=== PATIENT | male | born 1945 | race Caucasian/White ===

== ENCOUNTER 2019-09-26 07:50 | Inpatient (IN) | payer OTHER ==
[~2019-09-26] VITALS: Ht 188 cm; Wt 59.0 kg
[2019-09-26 07:50] VITALS: BP_SYST 126
--- NOTE | 2019-09-26 07:50 | NUR ---
Placed in room 1. Placed on campus monitor, blood pressure machine and pulse oximeter. To gown for exam. Side rails up. Report given to DONIS Sen.
--- NOTE | 2019-09-26 07:54 | NUR ---
Patient brought in by ambulance c/o hypotension, generalized weakness, and frequent falls that started a weak ago. Skin tears and wounds on bilateral lower arms noted. Denied any chest pain or shortness of breath. Patient is alert and oriented x2, respirations even and unlabored, speaking in full sentences and able to sit up without help. VSS, pain level 0/10. Informed of the wait time. Instructed to notify ED staff for any changes in condition or worsening of symptoms. Patient verbalized understanding.
--- NOTE | 2019-09-26 08:18 | NUR ---
ER Dr. Inman at bedside examining patient.
--- NOTE | 2019-09-26 08:20 | NUR ---
Urine specimen collected.
[2019-09-26] MEDS ORDERED: NACL 0.9% 1,000 ML IV ONE ×2 (08:22→10:30)
--- NOTE | 2019-09-26 08:25 | NUR ---
Accucheck done, registered HIGH. notified.
--- NOTE | 2019-09-26 08:30 | NUR ---
X-ray done at bedside as ordered by Dr. Inman. Patient tolerated the procedure well.
--- NOTE | 2019-09-26 08:46 | NUR ---
cable television technician at bedside collecting blood specimen. Patient tolerated the procedure well.
[2019-09-26] MEDS ORDERED: INSULIN REGULAR, HUMAN 10 UNITS/0.1 ML INJ IVP ONE (09:00)
--- NOTE | 2019-09-26 09:00 | NUR ---
Administered Insulin 10units IVP as ordered by Dr. Inman. Patient tolerated the medication. See eMAR for details.
[2019-09-26 09:11] LABS: BILIRUBIN,URINE NEGATIVE (NEGATIVE); BLOOD, URINE 2+ (NEGATIVE); CLARITY/URINE CLEAR (CLEAR); COLOR,URINE YELLOW (YELLOW); GLUCOSE,URINE 3+ (NEGATIVE); KETONES,URINE TRACE (NEGATIVE); LEUKOCYTE ESTERASE ,URINE NEGATIVE (NEGATIVE); NITRITE, URINE NEGATIVE (NEGATIVE); PROTEIN URINE NEGATIVE (NEGATIVE); UROBILINOGEN,URINE 0.2 (0.2-1.0)
[2019-09-26 09:20] LABS: BASOPHILS # (AUTO) 0.1 K/uL (0.0-0.2); BASOPHILS % (AUTO) 1.3 % (0.0-2.0); EOSINOPHILS % (AUTO) 0.2 % (0.0-4.0); HEMATOCRIT 50.3 % (36-54); HEMOGLOBIN 16.1 g/dL (14.0-18.0); LYMPHOCYTES # (AUTO) 1.2 K/uL (1.0-5.5); LYMPHOCYTES % (AUTO) 21.3 % (20.5-51.5); MEAN CORPUSCULAR HEMOGLOBIN 26 pg (27-31); MEAN CORPUSCULAR HGB CONC 32 % (32-36); MEAN CORPUSCULAR VOLUME 81 fL (79.0-98.0); MONOCYTES # (AUTO) 0.8 K/uL (0.0-1.0); MONOCYTES % (AUTO) 13.5 % (1.7-9.3); NEUTROPHILS # (AUTO) 3.6 K/uL (1.8-7.7); NEUTROPHILS % (AUTO) 63.7 % (40.0-70.0); PLATELET COUNT (AUTO) 223 K/uL (130-430); RED BLOOD CELL COUNT(AUTO) 6.23 MIL/uL (4.2-6.2); RED CELL DISTRIBUTION WIDTH 15.9 % (9.0-15.0); WHITE BLOOD COUNT (AUTO) 5.6 K/uL (4.8-10.8)
--- NOTE | 2019-09-26 09:30 | NUR ---
Daughter at bedside.
[2019-09-26 09:31] LABS: BACTERIA,URINE FEW /HPF (None Seen); MUCUS,URINE 1+ /LPF (None Seen); WBC,URINE 0-3 /HPF (0-3)
[2019-09-26 09:47] LABS: ANION GAP 18 (5-15); CALCIUM 10.2 mg/dL (8.4-11.0); CHLORIDE 94 mmol/L (98-107); CREATININE 2.12 mg/dL (0.55-1.30); POTASSIUM 4.8 mmol/L (3.5-5.1); SODIUM SERUM 135 mmol/L (136-145); UREA NITROGEN, BLOOD 52 mg/dL (8-21)
[2019-09-26 09:58] LABS: ALANINE AMINOTRANSFERASE 24 U/L (12-78); ALBUMIN 3.6 g/dL (3.4-4.8); ASPARTATE AMINOTRANSFERASE 23 U/L (10-37); LIPASE 116 U/L (73-393); TOTAL BILIRUBIN 0.8 mg/dL (0.0-1.0)
--- NOTE | 2019-09-26 10:32 | NUR ---
[facility] called for admitting doctor, spoke to jesus.
[2019-09-26] MEDS ORDERED: LIP20 PO (10:47)
[2019-09-26] MEDS ORDERED: BENA10TA11 PO (10:47)
[2019-09-26] MEDS ORDERED: ASPI-1077 PO (10:47)
[2019-09-26] MEDS ORDERED: TRAZ300T2 PO (10:47)
[2019-09-26] MEDS ORDERED: CELE200C PO (10:47)
[2019-09-26] MEDS ORDERED: AMLO5TAB4 PO (10:47)
--- NOTE | 2019-09-26 11:16 | NUR ---
vasc tech at bedside collecting blood specimen. Patient tolerated the procedure well.
--- NOTE | 2019-09-26 11:19 | NUR ---
dr gonzales speaking to dr garcia per admission
--- NOTE | 2019-09-26 11:21 | NUR ---
Received admitting orders from Dr. Washington.
--- NOTE | 2019-09-26 11:30 | NUR ---
Accucheck done at bedside: 521. Notified
--- NOTE | 2019-09-26 12:00 | NUR ---
Admission Note Received patient from ER with diagnosis of renal failure. Initial Plan of Care discussed-patient verbalized understanding. Family at bedside. Oriented to room, call light, pain management and safety.
--- NOTE | 2019-09-26 12:15 | NUR ---
Patient will be admitted to care of Dr. Washington. Admitted to Telemetry unit. Will go to room 120B. Belongings list completed. Complete and up to date summary report printed. SBAR report given to Maria C at bedside with opportunity for questions.
--- NOTE | 2019-09-26 12:20 | NUR ---
Initial Notes: Received patient in the room,bed side report given by Er nurse Francy. Vital signs taken,afebrile. Initial assessment done. With bilateral arm skin tear from a fall at home.Family at the bedside,giving some medical history. Call light with in reach. Bed locked at lowest position. Bed alarm on. Put on telemetry.No acute distress.
[2019-09-26 12:48] VITALS: BP_SYST 153
[2019-09-26] MEDS: NACL 0.9% 1,000 ML IV SCH ×2 (13:26→23:40)
--- NOTE | 2019-09-26 15:00 | NUR ---
Photos: Photos taken on both arms.For wound care consult.
[2019-09-26 16:00] VITALS: BP_SYST 134
--- NOTE | 2019-09-26 17:41 | NUR ---
BLOOD SUGAR: BLOOD SLSCT=597AT/DL,MD NOTIFIED,WAITING FOR ORDERS.
[2019-09-26] MEDS ORDERED: DEXTROSE 50% JECT 50 ML DISP.SYRIN IVP PRN (17:45)
[2019-09-26] MEDS: ACETAMINOPHEN 325 MG TABLET PO PRN (18:01)
[2019-09-26] MEDS: INSULIN REGULAR, HUMAN 100 UNITS/ML, 10 ML VIAL (humuLIN R) SUBCUT PRN ×2 (18:03→23:38)
--- NOTE | 2019-09-26 18:06 | NUR ---
MD DARIO LANDRY CALLED AT SPOKE WITH LASHONDA.
--- NOTE | 2019-09-26 18:10 | NUR ---
ADDITIONAL ORDER: SPOKE WITH DR FOUNTAIN FOR XR=791HO/DL,HUMULIN R 12 UNITS SC GIVEN PER SLIDING SCALE AND ADDITIONAL HUMULIN R 4 UNITS SC GIVEN ORDERED.REPEAT BLOOD SUGAR IN 2 HOURS.
[2019-09-26] MEDS ORDERED: INSULIN REGULAR, HUMAN 100 UNITS/ML, 10 ML VIAL SUBCUT ONE ×2 (18:15→21:00)
[2019-09-26] MEDS: cefTRIAXone 1 GM IVPB PREMIX 50 ML IV SCH (18:20)
--- NOTE | 2019-09-26 18:20 | NUR ---
WOUND CARE: CLEANSE NS BILATERAL ARM,PAT DRY,VASELINE GAUZE APPLIED AND COVERED WITH FOAM DRESSING. FOR WOUND CARE CONSULT ORDERED.
--- NOTE | 2019-09-26 18:54 | NUR ---
END OF SHIFT: DAUGHTER AT THE BEDSIDE. TYLENOL PO FOR RIGHT SHOULDER PAIN GIVEN PER PATIENT'S REQUEST. CALL LIGHT WITHIN REACH. BED LOCKED AT LOWEST POSITION. BED ALARM ON. SAFETY MEASURES RENDERED. NO ACUTE DISTRESS.
--- NOTE | 2019-09-26 19:35 | NUR ---
ROUNDS PATIENT RESTING COMFORTABLY IN BED, OT IN DISTRESS, VITALS STABLE. DENIES ANY PAIN AND DISCOMFORT AT THIS TIME. ASSESSMENT DONE AND DOCUMENTED. SEE FLOWSHEET. NEEDS ATTENDED TO. SAFETY AND FALL MEASURES IN PLACED. BED IN LOW AND LOCKED POSITION. CALL LIGHT PLACED WITHIN REACH.
[2019-09-26 20:00] VITALS: BP_SYST 158
[2019-09-26] MEDS: traZODone HCL 50 MG TABLET (DESYREL) PO SCH (20:45)
--- NOTE | 2019-09-26 20:55 | NUR ---
DR. FOUNTAIN PAGED AND TALKED TO DR. FOUNTAIN, PATIENT'S BLOOD SUGAR 406. NEW ORDER GIVEN FOR REGULAR INSULIN 8 UNITS SUBCU X1 AND REPEAT ACCU CHECK IN 2 HRS AFTER. WILL CONTINUE TO MONITOR.
[2019-09-27] VITALS: BP_SYST 147
--- NOTE | 2019-09-27 00:12 | NUR ---
PATIENT RESTING: Patient resting quietly. No acute distress noted. Vital signs within normal range.
--- NOTE | 2019-09-27 02:13 | NUR ---
ROUNDS PATIENT ASLEEP, NO SOB NOR PAIN AND DISCOMFORT NOTED, WILL CONTINUE TO MONITOR.
--- NOTE | 2019-09-27 04:16 | NUR ---
PATIENT RESTING: Patient resting quietly. No acute distress noted. Vital signs within normal range.
[2019-09-27] MEDS: INSULIN REGULAR, HUMAN 100 UNITS/ML, 10 ML VIAL (humuLIN R) SUBCUT PRN ×4 (05:33→23:57)
[2019-09-27 06:19] LABS: BASOPHILS # (AUTO) 0.1 K/uL (0.0-0.2); BASOPHILS % (AUTO) 0.9 % (0.0-2.0); EOSINOPHILS # (AUTO) 0.1 K/uL (0.0-0.4); EOSINOPHILS % (AUTO) 2.3 % (0.0-4.0); HEMATOCRIT 39.5 % (36-54); HEMOGLOBIN 13.2 g/dL (14.0-18.0); LYMPHOCYTES # (AUTO) 1.8 K/uL (1.0-5.5); LYMPHOCYTES % (AUTO) 29.9 % (20.5-51.5); MEAN CORPUSCULAR HEMOGLOBIN 26 pg (27-31); MEAN CORPUSCULAR HGB CONC 34 % (32-36); MONOCYTES # (AUTO) 0.9 K/uL (0.0-1.0); MONOCYTES % (AUTO) 15.2 % (1.7-9.3); NEUTROPHILS % (AUTO) 51.7 % (40.0-70.0); PLATELET COUNT (AUTO) 182 K/uL (130-430); RED BLOOD CELL COUNT(AUTO) 5.14 MIL/uL (4.2-6.2); RED CELL DISTRIBUTION WIDTH 15.8 % (9.0-15.0); WHITE BLOOD COUNT (AUTO) 5.9 K/uL (4.8-10.8)
[2019-09-27 06:40] LABS: MEAN CORPUSCULAR VOLUME 77 fL (79.0-98.0)
[2019-09-27 06:42] LABS: ALANINE AMINOTRANSFERASE 20 U/L (12-78); ALBUMIN 2.8 g/dL (3.4-4.8); ANION GAP 13 (5-15); ASPARTATE AMINOTRANSFERASE 22 U/L (10-37); CALCIUM 8.8 mg/dL (8.4-11.0); CHLORIDE 112 mmol/L (98-107); CREATININE 1.14 mg/dL (0.55-1.30); GLUCOSE 199 mg/dL (70-99); POTASSIUM 4.3 mmol/L (3.5-5.1); SODIUM SERUM 149 mmol/L (136-145); TOTAL BILIRUBIN 0.7 mg/dL (0.0-1.0); UREA NITROGEN, BLOOD 40 mg/dL (8-21)
--- NOTE | 2019-09-27 06:53 | NUR ---
CLOSING NOTES PATIENT AWAKE, WATCHING TV, VITALS STABLE. ALL NEEDS ATTEDED TO. SAFETY MEASURES MAINTAINED. CALL LIGHT PLACED WITHIN REACH.
--- NOTE | 2019-09-27 07:25 | NUR ---
AM ROUNDS: PATIENT AWAKE DURING ROUNDS. IV FLUIDS RUNNING AT LEFT AC INTACT. BILATERAL ARM WITH FOAM DRESSING ON,CLEAN AND DRY.CALL LIGHT WITH IN REACH. BED LOCKED AT LOWEST POSITION. SAFETY MEASURES RENDERED. NOT IN ANY DISTRESS.
[2019-09-27] MEDS: ATORVASTATIN 20 MG TABLET PO SCH (09:04)
[2019-09-27] MEDS: ASPIRIN 81 MG TAB.CHEW PO SCH (09:04)
[2019-09-27] MEDS: amLODIPine BESYLATE 5 MG TABLET PO SCH (09:04)
[2019-09-27 09:05] VITALS: BP_SYST 149
[2019-09-27] MEDS: NACL 0.9% 1,000 ML IV SCH ×2 (09:12→21:34)
--- NOTE | 2019-09-27 09:35 | NUR ---
Iv leaking : Iv removed,dry gauze applied,no bleeding. Re sited iv at right forearm using g#22 and continue iv fluids as ordered.
--- NOTE | 2019-09-27 10:19 | NUR ---
Nutrition Update Arnie Scale 16 noted. Pt admitted for renal failure. Diet: cardiac BMI: 16.7 kg/m2 RD to follow per nutrition care standards. R Addendum: 09/27/19 at [address] CORRECTION: Diet: cardiac, CCHO standard carb-60 gm
[2019-09-27] MEDS ORDERED: metFORMIN HCL 500 MG TABLET PO ONE (11:15)
[2019-09-27 11:42] VITALS: BP_SYST 123
--- NOTE | 2019-09-27 12:07 | NUR ---
Blood Sugar: Blood nwrmn=209qa/dl,Humulin R 6 units subq given per sliding scale,with no problem.
--- NOTE | 2019-09-27 15:00 | NUR ---
Wound Care: Cleanse with ns right arm,pat dry,oil emulsion to wound bed and covered with foam dressing.#2 Cleanse left arm with ns,pat dry,applied therahoney to wound bed ,sure prep to jose wound area,and covered with foam dressing.
--- NOTE | 2019-09-27 15:00 | NUR ---
WOUND EVALUATION: Late note for 1500 secondary to patient care. Wound Consult received from Dr. Washington. Thank you Dr. Washington for the consult. Patient received in a Orosi Bed with an Isoflex JEREMY mattress, awake, alert, and oriented. Patient is able to turn in bed independently. Arnie Score is a 16. Past Medical History: Diabetes Mellitus, Hypertension, history of Transient Ischemic Attack, back surgery. Recent Labs: WBC 5.9, RBC 5.14, hemoglobin 13.2, hematocrit 39.5, Sodium 149, chloride 112, glucose 199, BUN 40, creatinine 1.14, albumin 2.8. No microbiology reports. Intrinsic factors that delay wound healing: Diabetes Mellitus, hypoalbuminemia. Extrinsic factors that delay wound healing: Decreased mobility. Wound Assessment: 1. Left lateral forearm: Deep abrasion, present on admission. Wound bed has 80% dark discolored skin/tissue, 10% pink tissue, 10% yellow tissue. No odor, small dark sanguineous drainage. Periwound is erythematous. Wound measures 7.2 cm x 2.5 cm. Recommend: Cleanse wound with normal saline. Apply SurePrep to jose-wound. Apply Therahoney to wound bed. Cover with foam dressing. Perform wound care daily, and as needed for dressing soiling or dislodgement. 2. Right lateral forearm: Skin tear, present on admission. Skin tear has 80% red tissue, 20% dark red tissue. No odor, no drainage. Periwound intact. Small portion of residual skin flap present. Skin tear measures 2.4 cm x 0.7 cm. Recommend: Cleanse skin tear with normal saline. Apply SurePrep to jose-tear. Cover with oil emulsion dressing, then foam dressing. Perform wound care daily, and as needed for dressing soiling or dislodgement. Also recommend: Encourage and assist patient as needed with repositioning every 2 hours with pillow support and off-load pressure areas with pillows for pressure re-distribution. Offload, elevate and float bilateral heels with pillows. Perform skin care and monitor skin integrity Q shift.
[2019-09-27 16:00] VITALS: BP_SYST 107
--- NOTE | 2019-09-27 17:30 | NUR ---
Blood Sugar: Blood ffffh=361ud/dl,Humulin R 4 units subq given per sliding scale,with no problem.
[2019-09-27] MEDS: cefTRIAXone 1 GM IVPB PREMIX 50 ML IV SCH (17:35)
--- NOTE | 2019-09-27 18:51 | NUR ---
Closing Notes: Patient resting. Bilateral arm dressing clean and dry.No needs this time. Call light with in reach. bed locked at lowest position.Safety measures rendered. No acute distress.
--- NOTE | 2019-09-27 19:40 | NUR ---
ROUNDS PATIENT RESTING COMFORTABLY IN BED, WATCHING TV, VITALS STABLE, DENIES ANY PAIN AND DISCOMFORT AT THIS TIME. ASSESSMENT DONE AND DOCUMENTED. SEE FLOWSHEET. NEEDS ATTENDED TO. SAFETY MEASURES IN PLACED. BED IN LOW AND LOCKED POSITION. CALL LIGHT PLACED WITHIN REACH.
[2019-09-27] MEDS: ACETAMINOPHEN 325 MG TABLET PO PRN (19:45)
--- NOTE | 2019-09-27 21:13 | NUR ---
MEDICATION DUE MEDICATIONS GIVEN SCHEDULED, TOLERATED WELL. WILL CONTINUE TO MONITOR.
[2019-09-27] MEDS: traZODone HCL 50 MG TABLET (DESYREL) PO SCH (21:34)
[2019-09-27] MEDS ORDERED: traZODone HCL 50 MG TABLET (DESYREL) ONE (21:43)
--- NOTE | 2019-09-28 00:13 | NUR ---
PATIENT RESTING: Patient resting quietly. No acute distress noted. Vital signs within normal range.
[2019-09-28 00:27] VITALS: BP_SYST 132
--- NOTE | 2019-09-28 02:21 | NUR ---
ROUNDS PATIENT ASLEEP, RESPIRATIONS EVEN AND UNLABORED, WILL CONTINUE TO MONITOR.
[2019-09-28] MEDS: NACL 0.9% 1,000 ML IV SCH ×2 (03:27→08:30)
--- NOTE | 2019-09-28 04:16 | NUR ---
PATIENT RESTING: Patient resting quietly. No acute distress noted. Vital signs within normal range.
[2019-09-28] MEDS: INSULIN REGULAR, HUMAN 100 UNITS/ML, 10 ML VIAL (humuLIN R) SUBCUT PRN ×2 (06:19→12:13)
--- NOTE | 2019-09-28 06:55 | NUR ---
CLOSING NOTES PATIENT AWAKE, NO COMPLAINTS AT THIS TIME, VITALS STABLE. ALL NEEDS ATTENDED TO. SAFETY MEASURES MAINTAINED. CALL LIGHT PLACED WITHIN REACH.
--- NOTE | 2019-09-28 07:24 | NUR ---
Opening Note bedside SBAR report receiving from retail shift supervisor RN, patient resting in bed, respirations even and unlabored on room air, no acute distress noted, room close to nurses station, educated patient on use of call light and asked to call for assistance, patient verbalized understanding, call light in reach, bed in low and locked position, bed alarm on.
[2019-09-28 08:00] VITALS: BP_SYST 136
[2019-09-28] MEDS: amLODIPine BESYLATE 5 MG TABLET PO SCH (08:25)
[2019-09-28] MEDS: ASPIRIN 81 MG TAB.CHEW PO SCH (08:25)
[2019-09-28] MEDS: ATORVASTATIN 20 MG TABLET PO SCH (08:25)
[2019-09-28] MEDS ORDERED: metFORMIN HCL 500 MG TABLET PO SCH (09:00)
--- NOTE | 2019-09-28 09:50 | NUR ---
Wound Care educated patient on purpose and procedure for wound care, patient verbalized understanding, wound care completed, patient tolerated well, patient reports pain is controlled during and after wound care, see MST shift assessment for wound care.
--- NOTE | 2019-09-28 10:20 | NUR ---
Physical Therapy patient ambulating in [place] with physical therapy, patient tolerating well, patient assisted back to bed, patient resting in bed.
[2019-09-28 11:44] VITALS: BP_SYST 136
--- NOTE | 2019-09-28 12:26 | NUR ---
RN Rounds patient is sitting up in bed eating lunch, tolerating well, patient and patients daughter Sindhu are aware of discharge home and Sindhu is on her way to pick patient up for discharge home.
[2019-09-28 12:55] VITALS: BP_SYST 136
--- NOTE | 2019-09-28 13:09 | NUR ---
Discharge provided patient and patients daughter Sindhu with discharge packet and instructions, patient and patients daughter verbalized understanding, IV catheter removed, catheter intact, no bleeding, hospital ID band removed, patients daughter brought patient a change of clothes for discharge home, steady gait noted, no acute distress noted, all belongings sent with patient, patient accompanied by daughter Sindhu for discharge home, patient taken to parking lot via wheelchair.
--- NOTE | 2019-09-28 14:58 | NUR ---
PHYSICAL THERAPY CO-SIGN The Physical Therapy Progress Notes documented by Business Office Director have been reviewed. Reviewed/Co-Signed by: John Victor, PT Documentation Done by: ADMI RAMIREZ PTA Addendum: 09/28/19 at 1500 by John Victor PT Amended: Links added.
== END 2019-09-28 13:09 | disposition home or self-care (01) | DRG 682 ==
LOC: SED 07:50 → STU 11:30
PROVIDERS: ADMIT Internal Medicine Hospice and Palliative Medicine; ATTEND Internal Medicine Hospice and Palliative Medicine
DX: N17.0 Acute kidney failure with tubular necrosis (principal); E11.10 Type 2 diabetes mellitus with ketoacidosis without coma; E86.0 Dehydration; I10 Essential (primary) hypertension; E11.65 Type 2 diabetes mellitus with hyperglycemia; F12.90 Cannabis use, unspecified, uncomplicated; R55 Syncope and collapse; Z86.73 Personal history of transient ischemic attack (TIA), and cerebral infarction without residual deficits; Z79.899 Other long term (current) drug therapy
CPT/HCPCS: 36415; 71045; 80053; 81000-TC; 82550-TC; 82962; 83605; 83690-TC; 84484; 85025; 93005; 93306; 96361; 96374; 97110-GP; 97116-GP; 97530-GP; 99291; G0378; J0696; J1815; J7030